=== PATIENT | male | born 1980 | race Two or more races ===

== ENCOUNTER 2017-07-14 21:36 | Emergency (ER) | payer MEDICAID ==
[~2017-07-14] VITALS: Ht 167.6 cm; Wt 70.3 kg
[2017-07-14 21:40] VITALS: BP 117/86
--- NOTE | 2017-07-14 23:01 | NUR ---
PT STATED HE WOULD NO LONGER LIKE TO BE SEEN BY MD. PT LEFT ER. MD MADE AWARE
== END 2017-07-14 23:04 | disposition left against medical advice (07) ==
LOC: ER 21:39
DX: R53.1 Weakness (principal); Z53.21 Procedure and treatment not carried out due to patient leaving prior to being seen by health care provider
CPT/HCPCS: A4606; Z7610

== ENCOUNTER 2017-09-26 11:58 | Emergency (ER) | payer MEDICAID ==
[~2017-09-26] VITALS: Ht 167.6 cm; Wt 72.6 kg
--- NOTE | 2017-09-26 12:16 | NUR ---
PT TO ED C/O OF DIZZINESS, DIARRHEA X YESTERDAY. NOT IN DISTRESS. VSS
[2017-09-26] MEDS ORDERED: MECLIZINE HCL 12.5 MG TABLET PO ONE (12:30)
[2017-09-26] MEDS ORDERED: IV NS 0.9% 1,000 ML BAG IV ONE (12:30)
[2017-09-26] MEDS ORDERED: ONDANSETRON 4 MG TAB.RAPDIS PO ONE (12:30)
[2017-09-26] MEDS ORDERED: ONDANSETRON 4 MG TAB.RAPDIS ONE (12:40)
[2017-09-26] MEDS ORDERED: MECLIZINE HCL 25 MG TABLET ONE (12:40)
[2017-09-26 12:50] LABS: BASOPHILS # (AUTO) 0.1 /CMM (0.0-0.2); BASOPHILS % (AUTO) 1.2 % (0.0-2.0); HEMATOCRIT 50 % (39-51); HEMOGLOBIN 16.4 g/dL (13.5-17.5); LYMPHOCYTES % (AUTO) 24.4 % (20.0-44.0); MEAN CORPUSCULAR HEMOGLOBIN 26 PG (26.0-33.0); MEAN CORPUSCULAR HGB CONC 33 g/dl (31.0-36.0); MEAN CORPUSCULAR VOLUME 81 fL (80-96); MONOCYTES # (AUTO) 0.4 /CMM (0.1-1.30); MONOCYTES % (AUTO) 4.8 % (2.0-12.0); NEUTROPHILS # (AUTO) 5.4 /CMM (1.8-8.9); NEUTROPHILS % (AUTO) 65.6 % (43.0-81.0); PLATELET COUNT (AUTO) 372 /CMM (150-450); RDW COEFFICIENT OF VARIATION 12.8 (11.5-15.0); RED BLOOD CELL COUNT(AUTO) 6.24 MIL/uL (4.5-6.0); WHITE BLOOD COUNT (AUTO) 8.2 K/uL (4.3-11.0)
[2017-09-26 12:54] LABS: APPEARANCE,URINE Clear (CLEAR); BILIRUBIN,URINE Negative (NEGATIVE); BLOOD, URINE Negative Ery/uL (NEGATIVE); COLOR,URINE Yellow (YELLOW); KETONES,URINE Negative (NEGATIVE); LEUKOCYTE ESTERASE ,URINE Negative (NEGATIVE); NITRITE, URINE Negative (NEGATIVE); PROTEIN,URINE Negative (NEGATIVE); UGLUCOSE Negative (NEGATIVE); UROBILINOGEN,URINE 0.2 EU/dL (0.2)
[2017-09-26 12:58] LABS: CALCIUM, SERUM 9.4 mg/dL (8.5-10.1)
[2017-09-26] MEDS ORDERED: DIAZEPAM 10 MG TABLET ONE (13:59)
[2017-09-26] MEDS ORDERED: DIAZEPAM 10 MG TABLET PO ONE (14:00)
[2017-09-26 14:41] VITALS: BP 129/80
--- NOTE | 2017-09-26 14:41 | NUR ---
Patient discharged to home in stable condition. Written and verbal after care instructions given. Patient verbalizes understanding of instruction.IV removed. Catheter intact and site benign. Pressure and 4x4 applied to site. No bleeding noted.
[2017-09-26] MEDS ORDERED: HYDROCODONE/APAP 5/325MG 1 EACH TABLET ONE (16:54)
[2017-09-26] MEDS ORDERED: LEVOFLOXACIN (500MG) 500 MG TABLET ONE (16:55)
== END 2017-09-26 14:42 | disposition home or self-care (01) ==
LOC: ER 12:01
DX: R42 Dizziness and giddiness (principal); R19.7 Diarrhea, unspecified; R11.0 Nausea
CPT/HCPCS: 36415; 80048; 81001; 85025; 96360; 99284; A4606; J7030; J8597; Q0162; Z7610; 81000-TC

== ENCOUNTER 2024-08-28 20:10 | Emergency (ER) | payer MEDICAID, OTHER ==
[~2024-08-28] VITALS: Ht 167.6 cm; Wt 72.6 kg
[2024-08-28 22:37] VITALS: BP 128/72; TEMP 209.5; O2SAT 96
== END 2024-08-28 22:38 | disposition home or self-care (01) ==
LOC: ER 20:18
DX: H10.32 Unspecified acute conjunctivitis, left eye (principal)